=== PATIENT | female | born 1995 | race American Indian/Alaskan Native ===

== ENCOUNTER 2020-02-17 17:26 | Emergency (ER) | payer MEDICAID ==
[2020-02-17 17:35] VITALS: BP 128/79
--- NOTE | 2020-02-17 18:09 | XRay Report ---
CHEST 2 VIEWS INDICATION / CLINICAL INFORMATION: Chest Pain. COMPARISON: None available. FINDINGS: SUPPORT DEVICES: None. HEART / MEDIASTINUM: No significant abnormality. LUNGS / PLEURA: No significant pulmonary or pleural abnormality. No pneumothorax. ADDITIONAL FINDINGS: No significant additional findings. IMPRESSION: 1. No acute findings. Signer Name: Barbra Hayes MD Signed: 02/17/2020 6:05 PM Workstation Name: [id number]
[2020-02-17] MEDS ORDERED: ALUM-MAG HYDROXIDE-SIMETHICONE 200-200-20MG/5ML ORAL LIQD 30 ML PO ONE (18:21)
[2020-02-17] MEDS ORDERED: LIDOCAINE VISCOUS 2% 15 ML ORAL LIQD PO ONE (18:21)
--- NOTE | 2020-02-17 18:24 | Event Note ---
ED Screening Note Date of service: 02/17/20 Time: 18:23 ED Screening Note: Patient a 24-year-old -[place] female who presents for chest pain x2 days. Symptoms are exacerbated by deep breathing and p.o. intake. There is been one episode of nausea vomiting. Now with cough that is productive thick and clear. With some fever. Patient denies suspicious contacts. Symptoms are rated at 5/10 at this time. This initial assessment/diagnostic orders/clinical plan/treatment(s) is/are subj ect to change based on patients health status, clinical progression and re- assessment by fellow clinical providers in the ED. Further treatment and workup at subsequent clinical providers discretion. Patient/guardian urged not to elope from the ED as their condition may be serious if not clinically assessed and managed. Initial orders include: ekg, cxr, cmp, cbc, ua, hcg, lipase, gi cocktail
[2020-02-17 19:50] LABS: Basophils % (Auto) 0.2 % (0.0-1.8); Eosinophils # (Auto) 0.1 K/mm3 (0.0-0.4); Eosinophils % (Auto) 1.2 % (0.0-4.3); Hemoglobin 14.7 gm/dl (10.1-14.3); Lymphocytes # (Auto) 1.3 K/mm3 (1.2-5.4); Lymphocytes % (Auto) 10.9 % (13.4-35.0); Mean Corpuscular HGB Conc 33 % (30-34); Mean Corpuscular Volume 94 fl (79-97); Monocytes # (Auto) 1.1 K/mm3 (0.0-0.8); Platelet Count 206 K/mm3 (140-440); Red Cell Distribution Width 13.3 % (13.2-15.2)
[2020-02-17 19:53] LABS: Alanine Aminotransferase 12 units/L (7-56); Albumin 4.5 g/dL (3.9-5); BUN/Creatinine Ratio 10; Blood Urea Nitrogen 9 mg/dL (7-17); Calcium 9.4 mg/dL (8.4-10.2); Hemolysis Index 14
[2020-02-17] MEDS ORDERED: IBUPROFEN 600 MG TAB PO ONE (21:13)
[2020-02-17] MEDS ORDERED: FAMOTIDINE 20 MG TAB PO ONE (21:13)
[2020-02-17] MEDS ORDERED: ONDANSETRON 4 MG ODT TAB PO ONE (21:13)
[2020-02-17] MEDS ORDERED: ACETAMINOPHEN 500 MG TAB PO ONE (21:14)
[2020-02-17 21:26] LABS: HCG Qualitative,Urine Negative (Negative)
[2020-02-17 21:27] LABS: Bacteria,Urine 1+ /HPF (Negative); Bilirubin,Urine NEG (Negative); Blood,Urine NEG (Negative); Color,Urine Colorless (Yellow); Protein,Urine <15 mg/dL mg/dL (Negative); Urobilinogen,Urine < 2.0 mg/dL (<2.0); WBC,Urine < 1.0 /HPF (0.0-6.0)
--- NOTE | 2020-02-17 22:10 | Emergency Department Report ---
ED General Adult HPI - General Chief complaint: Chest Pain Stated complaint: CP/HEADACHE Source: patient Mode of arrival: Ambulatory Limitations: No Limitations - History of Present Illness Initial comments: Patient is a 24-year-old -Iranian female with a history of chronic tobacco abuse who presents to the ED with complaint of acute onset substernal chest pain intermittently for the last 12 hours. Patient states that the pain is sharp and burning and sometimes dull in appearance. Patient states that she has not taken any medications for the same except Tylenol which did not seem to help. Patient denies dizziness, syncope, fever, chills, cough, nausea and vomit ing or diarrhea, abdominal pain, dysuria, urinary frequency and urgency, heavy lifting, traumatic injury, back pain or neck pain, syncope or palpitations. MD Complaint: Nausea, substernal chest pain -: Sudden, hour(s) (12) Location: chest Radiation: non-radiation Severity scale (0 -10): 3 Quality: aching, sharp Consistency: intermittent Improves with: none Worsens with: other (cough) Associated Symptoms: denies other symptoms, chest pain (substernal), cough, loss of appetite, malaise. denies: confusion, diaphoresis, fever/chills, headaches, nausea/vomiting, rash, seizure, shortness of breath, syncope, weakness, other Treatments Prior to Arrival: none - Related Data Previous Rx's Medication Instructions Recorded Last Taken Type Famotidine [Pepcid] 20 mg PO BID #30 tablet 02/17/20 Unknown Rx Naproxen 500 mg PO Q12H PRN #20 tablet 02/17/20 Unknown Rx Ondansetron [Zofran Odt] 4 mg PO Q6HR PRN #20 tab.rapdis 02/17/20 Unknown Rx Allergies Allergy/AdvReac Type Severity Reaction Status Date / Time chlorine Allergy Rash Uncoded 02/17/20 17:30 ED Review of Systems ROS: Stated complaint: CP/HEADACHE Other details as noted in HPI Constitutional: denies: chills, fever Eyes: denies: eye pain, eye discharge, vision change ENT: denies: ear pain, throat pain Respiratory: denies: cough, shortness of breath, wheezing Cardiovascular: chest pain (substernal). denies: palpitations, syncope, paroxysmal nocturnal dyspnea Endocrine: no symptoms reported Gastrointestinal: nausea. denies: abdominal pain, vomiting, diarrhea, constipation, hematemesis, hematochezia Genitourinary: denies: urgency, dysuria, frequency, hematuria, discharge, abnormal menses, dyspareunia Musculoskeletal: denies: back pain, joint swelling, arthralgia Skin: denies: rash, lesions Neurological: denies: headache, weakness, paresthesias Psychiatric: denies: anxiety, depression Hematological/Lymphatic: denies: easy bleeding, easy bruising ED Past Medical Hx - Past Medical History Previous Medical History?: No - Surgical History Past Surgical History?: No - Social History Smoking Status: Current Every Day Smoker Substance Use Type: Alcohol, Marijuana - Medications Home Medications: Home Medications Medication Instructions Recorded Confirmed Last Taken Type Famotidine [Pepcid] 20 mg PO BID #30 tablet 02/17/20 Unknown Rx Naproxen 500 mg PO Q12H PRN #20 tablet 02/17/20 Unknown Rx Ondansetron [Zofran Odt] 4 mg PO Q6HR PRN #20 tab.rapdis 02/17/20 Unknown Rx ED Physical Exam - General Limitations: No Limitations General appearance: alert, in no apparent distress - Head Head exam: Present: atraumatic, normocephalic, normal inspection - Eye Eye exam: Present: normal appearance, PERRL, EOMI Pupils: Present: normal accommodation - ENT ENT exam: Present: normal exam, normal orophraynx, mucous membranes moist, TM's normal bilaterally, normal external ear exam - Neck Neck exam: Present: normal inspection, full ROM - Respiratory Respiratory exam: Present: normal lung sounds bilaterally. Absent: respiratory distress, wheezes, rales, rhonchi, chest wall tenderness, accessory muscle use, decreased breath sounds - Cardiovascular Cardiovascular Exam: Present: normal rhythm, tachycardia, normal heart sounds. Absent: systolic murmur, diastolic murmur, rubs, gallop - GI/Abdominal GI/Abdominal exam: Present: soft, normal bowel sounds. Absent: tenderness, guarding, hyperactive bowel sounds, hypoactive bowel sounds - Extremities Exam Extremities exam: Present: normal inspection, full ROM, normal capillary refill - Back Exam Back exam: Present: normal inspection, full ROM. Absent: tenderness, CVA tenderness (R), CVA tenderness (L), muscle spasm, paraspinal tenderness, vertebral tenderness - Neurological Exam Neurological exam: Present: alert, oriented X3, CN II-XII intact, normal gait, reflexes normal - Psychiatric Psychiatric exam: Present: normal affect, normal mood - Skin Skin exam: Present: warm, dry, intact, normal color. Absent: rash ED Course Vital Signs 02/17/20 02/17/20 17:33 23:16 Temperature 98.7 F Pulse Rate 118 H 85 Respiratory 17 18 Rate Blood Pressure 128/79 O2 Sat by Pulse 97 96 Oximetry ED Medical Decision Making - Lab Data Result diagrams: 02/17/20 19:19 02/17/20 19:19 - EKG Data EKG shows normal: sinus rhythm Rate: tachycardia - EKG Data Interpretation: normal EKG 02/17/20 23:53 EKG shows sinus tachycardia with a ventricular rate of [address] or T wave abnormalities. - Radiology Data Radiology results: report reviewed, image reviewed Findings [address] [address] XRay Report Signed Patient: JESSIE MCKEON MR#: [id number] : 1995 Acct:[id number] Age/Sex: 24 / F ADM Date: 02/17/20 Loc: ED Attending Dr: Ordering Physician: RUBI DAVIDSON MD Date of Service: 02/17/20 Procedure(s): XR chest 1V ap Accession Number(s): [id number] cc: ED MD STUART Fluoro Time In Minutes: CHEST 2 VIEWS INDICATION / CLINICAL INFORMATION: Chest Pain. COMPARISON: None available. FINDINGS: SUPPORT DEVICES: None. HEART / MEDIASTINUM: No significant abnormality. LUNGS / PLEURA: No significant pulmonary or pleural abnormality. No pneumothora x. ADDITIONAL FINDINGS: No significant additional findings. IMPRESSION: 1. No acute findings. Signer Name: Barbra Hayes MD Signed: 02/17/2020 6:05 PM Workstation Name: [id number] Transcribed By: JR Dictated By: Barbra Hayes MD Electronically Authenticated By: Barbra Hayes MD Signed Date/Time: 02/17/201804 DD/ 03 TD/TT: - Medical Decision Making This is a 24-year-old -Iranian female with a history of chronic tobacco abuse who presents to the ED with complaint of acute onset substernal chest pain intermittently for the last 12 hours. Patient states that the pain is sharp and burning and sometimes dull in appearance. Patient states that she has not taken any medications for the same except Tylenol which did not seem to help. In the ED, patient is alert and oriented x3 and is not in distress. Patient was treated in the ED for pain and also given GI cocktail. Lab test results were reviewed and are all nonactionable including initial and repeat troponin levels. Patient's heart score is 1 based on the past medical history of chronic tobacco abuse. The patient is PERC negative per Wells criteria. Chest x-ray shows no acute cardiopulmonary abnormalities or pneumonitis. The EKG shows normal sinus rhythm. The patient symptoms are likely due to GERD, muscle strain or acute costochondritis. Patient was discharged home on medications and advised to follow-up with her primary care physician in 5 to 7 days for reevaluation or return to the ED immediately if symptoms get worse. - Differential Diagnosis CAD; Pneumonia; GERD; Gastritis; URI Critical care attestation.: If time is entered above; I have spent that time in minutes in the direct care of this critically ill patient, excluding procedure time. ED Disposition Clinical Impression: Acute nonspecific chest pain with low risk of coronary artery disease, Acute costochondritis GERD (gastroesophageal reflux disease) Qualifiers: Esophagitis presence: without esophagitis Qualified Code(s): K21.9 - Gastro- esophageal reflux disease without esophagitis Disposition: DC-01 TO HOME OR SELFCARE Is pt being admited?: No Does the pt Need Aspirin: No Condition: Stable Instructions: Chest Pain (ED), Costochondritis (ED), Gastroesophageal Reflux Disease (ED) Additional Instructions: Take medication with food, drink plenty of fluids and follow-up with your primary care physician in 5 to 7 days for reevaluation. Return to the ED immediately if symptoms get worse. Prescriptions: Naproxen 500 mg PO Q12H PRN #20 tablet PRN Reason: Pain , Severe (7-10) Famotidine [Pepcid] 20 mg PO BID #30 tablet Ondansetron [Zofran Odt] 4 mg PO Q6HR PRN #20 tab.rapdis PRN Reason: Nausea Referrals: [facility] [Provider Group] - 3-5 Days Time of Disposition: 23:10 Print Language: ANDORRAN
== END 2020-02-17 23:17 | disposition home or self-care (01) ==
LOC: ED 17:26
DX: K21.9 Gastro-esophageal reflux disease without esophagitis (principal); M94.0 Chondrocostal junction syndrome [Tietze]; R07.89 Other chest pain; F17.200 Nicotine dependence, unspecified, uncomplicated; F12.10 Cannabis abuse, uncomplicated; Z79.899 Other long term (current) drug therapy; Z88.8 Allergy status to other drugs, medicaments and biological substances
CPT/HCPCS: 36415; 71045; 71046; 80053; 81001; 81025; 83690; 84484; 85025; 93005; Q0162